=== PATIENT | male | born 1940 | race Caucasian/White ===

== ENCOUNTER 2016-12-21 21:10 | Inpatient (IN) | payer MEDICARE ==
[~2016-12-21] VITALS: Ht 175.3 cm; Wt 70.4 kg
[~2016-12-21 21:10] MED LIST: IOHEXOL 350 MG/ML 10 ML VIAL (for RAD DIAG) IV ONE
[2016-12-21 21:19] VITALS: BP 189/102; PULSE 96; RESP 18; TEMP 98; O2SAT 95
[2016-12-21 21:32] VITALS: BP 171/97; PULSE 84; RESP 18; O2SAT 97
--- NOTE | 2016-12-21 21:39 | PD ---
HPI Chief Complaint: CVA Time Seen by Provider: 21:22 Travel History International Travel<30 days: No Contact w/Intl Traveler<30days: No History of Present Illness HPI The patient 76 years old. He arrives to the triage department via private auto due to dysarthria. It started 3 hours prior to ER arrival. It has been progressively worsening since then. He also notes that he believes he left face droop as well. He reports that in 1992 he suffers from Parkinson's and has had left upper and lower extremity weakness. He has suffered no cranial nerve deficit however. The patient reports he has diabetes and takes glyburide for that. He has no additional complaint offered. Upon arrival to the ER stroke alert was activated. The patient takes a baby aspirin daily. He denies anticoagulants otherwise. Blood sugar on arrival 218. PFSH Past Medical History Cerebrovascular Accident: Yes Diabetes: Yes Hypertension: Yes Social History Tobacco Use: No (quit in 1992) Allergies-Medications (Allergen,Severity, Reaction): Coded Allergies: No Known Allergies (Unverified , 12/21/16) Reported Meds & Prescriptions Reported Meds & Active Scripts Active Reported Aspirin 81 (Aspirin) 81 Mg Tabdr 81 Mg PO DAILY Verapamil (Verapamil HCl) 40 Mg Tab Unknown Dose PO DAILY Glimepiride 2 Mg Tab 2 Mg PO HS Take with breakfast or first main meal Tamsulosin (Tamsulosin HCl) 0.4 Mg Cap 0.4 Mg PO HS Simvastatin 20 Mg Tab 20 Mg PO DAILY Review of Systems ROS Limitations: Clinical Condition Physical Exam Narrative GENERAL: 76-year-old male pleasant well-nourished well-developed SKIN: Warm and dry. HEAD: Atraumatic. Normocephalic. EYES: Pupils equal and round. No scleral icterus. No injection or drainage. ENT: No nasal bleeding or discharge. Mucous membranes pink and moist. NECK: Trachea midline. No JVD. CARDIOVASCULAR: Regular rate and rhythm. No murmur appreciated. RESPIRATORY: No accessory muscle use. Clear to auscultation. Breath sounds equal bilaterally. GASTROINTESTINAL: Abdomen soft, non-tender, nondistended. Hepatic and splenic margins not palpable. MUSCULOSKELETAL: No obvious deformities. No clubbing. No cyanosis. No edema. NEUROLOGICAL: There is a mild facial droop on the left side. The patient suffers with mild dysarthria cranial nerves otherwise appears preserved. On the left side there is a contraction deformity at the digits. There is trace pronator drift on the left side as well. The left upper and lower extremity motor weakness is chronic. PSYCHIATRIC: Appropriate mood and affect; insight and judgment normal. Data Data Last Documented VS Vital Signs Date Time Temp Pulse Resp B/P Pulse Ox O2 Delivery O2 Flow Rate FiO2 12/21/16 22:30 86 18 99 Nasal Cannula 2 12/21/16 22:01 159/83 12/21/16 21:19 98.0 Orders Diet Npo (12/22/16 Breakfast) Activity Bed Rest (12/21/16 ) Electrocardiogram (12/21/16 ) I-Stat Creatinine (12/21/16 21:) I-Stat Profile (12/21/16 21:22) Prothrombin Time / Inr (Pt) (12/21/16:) Act Partial Throm Time (Ptt) (12/21/16 21:22) Complete Blood Count With Diff (12/21/16 21:) Fibrinogen (12/21/16 21:22) Creatine Kinase (Cpk) (12/21/16 21:22) Troponin I (12/21/16 21:22) Ua Includes Microscopic (12/21/16 21:22) Drug Screen, Random Urine (12/21/16 21:22) Type And Screen (12/21/16 21:) Ct Brain W/O Iv Contrast(Rout) (12/21/16 ) Cta Brain W Iv Contrast W 3d (12/21/16 21:22) Cta Neck W Iv Contrast W 3d (12/21/16 21:22) Consult Neurology (12/21/16 ) Blood Glucose (12/21/16 21:22) Ecg Monitoring (12/21/16 21:) Neuro Checks Q2HX12,Q4H (12/21/16 21:22) Nursing Bedside Swallow Assess .ONCE (12/21/16 21:) Iv Access Insert/Monitor (12/21/16 21:22) NPO (12/21/16 21:22) Oximetry (12/21/16 21:22) Oxygen Administration (12/21/16 21:22) Resp Oxygen Segundo C Titrat 1-4 L (12/21/16 21:22) Cath For Specimen (12/21/16 21:22) Clopidogrel (Plavix) (12/21/16 22:15) Admit Order (Ed Use Only) (12/21/16 22:43) Labs Laboratory Tests Test 12/21/16 12/21/16 21:25 22:20 White Blood Count 6.3 TH/MM3 Red Blood Count 4.91 MIL/MM3 Hemoglobin 14.5 GM/DL Bedside Hemoglobin 14.6 G/DL Hematocrit 43.1 % Bedside Hematocrit 43.0 % Mean Corpuscular Volume 87.7 FL Mean Corpuscular Hemoglobin 29.6 PG Mean Corpuscular Hemoglobin 33.7 % Concent Red Cell Distribution Width 13.1 % Platelet Count 211 TH/MM3 Mean Platelet Volume 7.6 FL Neutrophils (%) (Auto) 58.4 % Lymphocytes (%) (Auto) 29.3 % Monocytes (%) (Auto) 8.5 % Eosinophils (%) (Auto) 3.1 % Basophils (%) (Auto) 0.7 % Neutrophils # (Auto) 3.7 TH/MM3 Lymphocytes # (Auto) 1.9 TH/MM3 Monocytes # (Auto) 0.5 TH/MM3 Eosinophils # (Auto) 0.2 TH/MM3 Basophils # (Auto) 0.0 TH/MM3 CBC Comment DIFF FINAL Differential Comment Prothrombin Time 10.5 SEC Prothromb Time International 1.0 RATIO Ratio Activated Partial 25.7 SEC Thromboplast Time Fibrinogen 314 mg/dL Bedside Sodium 140 MMOL/L Bedside Potassium 3.9 MMOL/L Bedside Chloride 103 MMOL/L Bedside Blood Urea Nitrogen 26 MG/DL Bedside Creatinine 1.2 MG/DL Bedside Glucose 211 MG/DL Total Creatine Kinase 165 U/L Troponin I LESS THAN 0.02 NG/ML Blood Type O POSITIVE Antibody Screen NEGATIVE Blood Bank Comment Urine Color LIGHT-YELLOW Urine Turbidity CLEAR Urine pH 6.0 Urine Specific [place] 1.044 Urine Protein NEG mg/dL Urine Glucose (UA) NEG mg/dL Urine Ketones NEG mg/dL Urine Occult Blood NEG Urine Nitrite NEG Urine Bilirubin NEG Urine Urobilinogen LESS THAN 2.0 MG/DL Urine Leukocyte Esterase NEG Urine RBC LESS THAN 1 /hpf Urine Mucus FEW /lpf Microscopic Urinalysis Comment Urine Opiates Screen NEG Urine Barbiturates Screen NEG Urine Amphetamines Screen NEG Urine Benzodiazepines Screen NEG Urine Cocaine Screen NEG Urine Cannabinoids Screen NEG MDM Medical Screen Exam Complete: Yes Emergency Medical Condition: Yes Differential Diagnosis Ischemic stroke, hemorrhagic stroke, hypoglycemia, metabolic abnormality, intracranial mass Narrative Course CBC & BMP Diagram 12/21/16 21:25 Tn < 0.02 EKG: sinus, MO interval 227, normal axis rate 86 Last 24 hours Impressions Neck CTA 12/21/162121 Signed Impressions: Service Date/Time: Wednesday, December 21, 2016 21:28 - CONCLUSION: Unremarkable examination. Lavon Atkinson MD Head CTA 12/21/162121 Signed Impressions: Service Date/Time: Wednesday, December 21, 2016 21:29 - CONCLUSION: Unremarkable study. Lavon Atkinson MD Head CT 12/21/16 0000 Signed Impressions: Service Date/Time: Wednesday, December 21, 2016 21:26 - CONCLUSION: Chronic and small vessel ischemic changes without any evidence for acute hemorrhage or mass effect. Lavon Atkinson MD Case discussed with neurologist Dr. hickman and the patient has a contraindication to TPA administration. The patient understands as does the . Patient will be admitted for advanced imaging and further evaluation. Case discussed Dr Escalante. Stroke Alert NIHSS NIH Stroke Scale Result: 5 NIHSS Time Completed: 21:33 Thrombolytic Contraindications Contraindications Comment: The patient arrived after the 3 hour window. He has a history of prior stroke and diabetes which are contraindications to alteplase. There was no focal lesion on the arterial cross sectional imaging. The patient, his and I had a fairly lengthy discussion. Both understand the contraindications to alteplase administration, which in this case is time of onset greater than 3 hours less than 4.5 hours with a history of stroke and diabetes. There is no new motor weakness in either extremity. Patient has a face droop on the left side only visible while smiling. Speach is very occasionally dysarthric beyond comprehension. Diagnosis Diagnosis: Primary Impression: CVA (cerebral vascular accident) Qualified Code: I63.9 - Cerebrovascular accident (CVA), unspecified mechanism Admitting Physician Requests: Admit Barney Mirza MD Dec 21, 2016 21:39
--- NOTE | 2016-12-21 21:46 | RADRPT ---
EXAM DATE/TIME: 12/21/2016 21:26 [facility] COMPARISON: No previous studies available for comparison. INDICATIONS : Stroke alert; left sided facial droop and slurred speech. RADIATION DOSE: 56.35 CTDIvol (mGy) This report was called by myself to Dr. Mirza at 21: 40 hours MEDICAL HISTORY : Cerebrovascular disease. SURGICAL HISTORY : None. ENCOUNTER: Initial ACUITY: 1 day PAIN SCALE: 1/10 LOCATION: cranial TECHNIQUE: Multiple contiguous axial images were obtained of the head. Using automated exposure control and adj ustment of the mA and/or kV according to patient size, radiation dose was kept as low as reasonably a chievable to obtain optimal diagnostic quality images. FINDINGS: There is no evidence for intracranial hemorrhage, mass effect, mass lesions, or edema. The visualize d bony structures appear intact. Moderate degree of brain atrophy is seen. Moderate periventricular white matter changes are seen nonspecific mostly consistent with chronic small vessel ischemic change s. There are no signs of acute infarction for technique. There are old lacunar infarctions on the ri ght as well. CONCLUSION: Chronic and small vessel ischemic changes without any evidence for acute hemorrhage o r mass effect. Lavon Atkinson MD on December 21, 2016 at 21:40 Board Certified Radiologist. This report was verified electronically.
[2016-12-21 21:47] LABS: I-STAT POTASSIUM 3.9 MMOL/L (3.5-4.9); I-STAT SODIUM 140 MMOL/L (138-146)
[2016-12-21 21:52] VITALS: RESP 20
[2016-12-21 21:52] LABS: AUTOMATED NEUTROPHIL # 3.7 TH/MM3 (1.8-7.7); BASOPHIL % 0.7 % (0.0-2.0); EOSINOPHIL # 0.2 TH/MM3 (0-0.4); EOSINOPHIL % 3.1 % (0.0-4.0); HEMATOCRIT 43.1 % (39.0-51.0); HEMO FLAGS DIFF FINAL; LYMPH % 29.3 % (9.0-44.0); LYMPHOCYTE # 1.9 TH/MM3 (1.0-4.8); MEAN CELL VOLUME 87.7 FL (80.0-100.0); MEAN CORPUSCULAR HEMOGLOBIN 29.6 PG (27.0-34.0); MEAN CORPUSCULAR HGB CONC 33.7 % (32.0-36.0); MONO % 8.5 % (0.0-8.0); NEUT % 58.4 % (16.0-70.0); PLATELET COUNT 211 TH/MM3 (150-450); RED BLOOD COUNT 4.91 MIL/MM3 (4.50-5.90); RED CELL DISTRIBUTION WIDTH 13.1 % (11.6-17.2); WHITE BLOOD COUNT 6.3 TH/MM3 (4.0-11.0)
--- NOTE | 2016-12-21 21:56 | RADRPT ---
EXAM DATE/TIME: 12/21/2016 21:28 [facility] COMPARISON: CTA BRAIN W 3D RECON, December 21, 2016, 21:29. CT BRAIN W/O CONTRAST, December 21, 2016, 21:26. INDICATIONS : Stroke alert; left sided facial droop and slurred speech. IV CONTRAST: 75 cc Omnipaque 350 (iohexol) IV ; Cumulative dose for multiple exams. RADIATION DOSE: 34.37 CTDIvol (mGy) ; Combined studies MEDICAL HISTORY : Cerebrovascular disease. SURGICAL HISTORY : None. ENCOUNTER: Initial ACUITY: 1 day PAIN SCALE: 0/10 LOCATION: neck Elevated flow velocities and ICA/CCA ratios have been found to correlate with increased degrees of vessel stenosis, calculated as percentage of diameter relative to a normal segment of distal ICA/CCA. TECHNIQUE: Volumetric scanning was performed using a multirow detector CT scanner. The data was post processed with a variety of visualization algorithms including full-volume maximum intensity projection, multip lanar sliding thin-slab reformation, curved-planar reformation, and surface-rendering techniques. Us ing automated exposure control and adjustment of the mA and/or kV according to patient size, radiatio n dose was kept as low as reasonably achievable to obtain optimal diagnostic quality images. FINDINGS: AORTIC ARCH: There is a three-vessel origin of the great vessels from the aorta. No evidence of ostial narrowing. RIGHT CAROTID: The common carotid artery is intact. The carotid bulb has a normal configuration without ulceration o r narrowing. The internal carotid artery lumen is smooth without stenosis. The external carotid yolanda ry is intact. LEFT CAROTID: The common carotid artery is intact. The carotid bulb has a normal configuration without ulceration or narrowing. The internal carotid artery lumen is smooth without stenosis. The external carotid ar jolie is intact. VERTEBRALS: The vertebral arteries have a symmetric diameter. No stenotic lesions are seen. CONCLUSION: Unremarkable examination. Lavon Atkinson MD on December 21, 2016 at 21:52 Board Certified Radiologist. This report was verified electronically.
[2016-12-21 22:01] VITALS: BP 159/83; PULSE 79; RESP 18; O2SAT 100
[2016-12-21 22:01] LABS: APTT (PATIENT) 25.7 SEC (24.3-30.1); PROTHROMBIN TIME - PATIENT 10.5 SEC (9.8-11.6)
[2016-12-21 22:08] LABS: CREATINE KINASE 165 U/L (39-308)
--- NOTE | 2016-12-21 22:11 | RADRPT ---
EXAM DATE/TIME: 12/21/2016 21:29 [facility] COMPARISON: CTA CAROTID ARTERIES W 3D RECON, December 21, 2016, 21:28. CT BRAIN W/O CONTRAST, December 21, 2016, 21:26 . INDICATIONS : Stroke alert; left sided facial droop and slurred speech. IV CONTRAST: 75 cc Omnipaque 350 (iohexol) IV ; Cumulative dose for multiple exams. RADIATION DOSE: 34.37 CTDIvol (mGy) MEDICAL HISTORY : Cerebrovascular disease. SURGICAL HISTORY : None. ENCOUNTER: Initial ACUITY: 1 day PAIN SCALE: 1/10 LOCATION: cranial TECHNIQUE: Volumetric scanning was performed using a multi-row detector CT scanner. The data was post processed with a variety of visualization algorithms including full volume maximum intensity projection, multi -planar sliding thin slab reformation, curved planar reformation, and surface rendering techniques. Using automated exposure control and adjustment of the mA and/or kV according to patient size, radiat ion dose was kept as low as reasonably achievable to obtain optimal diagnostic quality images. FINDINGS: No significant vascular malformations, vessel truncation or aneurysmal dilatations are seen. No defin ite thrombus is identified. CONCLUSION: Unremarkable study. Lavon Atkinson MD on December 21, 2016 at 22:07 Board Certified Radiologist. This report was verified electronically.
[2016-12-21] MEDS ORDERED: CLOPIDOGREL 75 MG TAB PO ONE (22:15)
[2016-12-21 22:46] LABS: BLOOD, URINE NEG (NEG); GLUCOSE,URINE NEG (NEG); KETONE, URINE NEG (NEG); MUCUS URINE FEW /lpf (OCC); NITRITE,URINE NEG (NEG); URINE COLOR LIGHT-YELLOW (YELLW/STRAW)
[2016-12-21 22:50] LABS: AMPHETAMINE, URINE NEG (NEG); BARBITURATES, URINE NEG (NEG); COCAINE, URINE NEG (NEG)
[2016-12-21] MEDS ORDERED: SIMV20TA PO (23:21)
[2016-12-21] MEDS ORDERED: ASPI-110 PO (23:21)
[2016-12-21] MEDS ORDERED: TAMS0.4C4 PO (23:21)
[2016-12-21] MEDS ORDERED: GLIM2TAB PO (23:21)
[2016-12-21] MEDS ORDERED: VERA40TA PO (23:21)
[2016-12-21 23:48] VITALS: BP 149/86; PULSE 73; RESP 18; O2SAT 98
[2016-12-22] VITALS (9 sets, daily range): BP systolic 138–174; BP diastolic 74–92; PULSE 63–78; RESP 16–20; TEMP 97.4–97.8; O2SAT 97–99
[2016-12-22] MEDS ORDERED: SODIUM CHLOR 0.9% 1000 ML INJ 1,000 ML IV SCH (00:25)
--- NOTE | 2016-12-22 09:11 | HHI.HP ---
[facility] Unknown Admission Diagnosis CVA Diagnoses: Chief Complaint: Slurred Speech, Dysarthria Travel History International Travel<30 Days: No Contact w/Intl Traveler <30 Da: No Traveled to Known Affected Are: No History of Present Illness This is a pleasant 76 y/o male who came to ER on a private Auto due to Dysarthria that started 3 hours before coming to ER, progressively worsening, He also notes that he believes he left face droop as well. He reports that in 1992 he suffers from Parkinson's and has had left upper and lower extremity weakness. He has suffered no cranial nerve deficit however. The patient reports he has diabetes and takes glyburide for that. He has no additional complaint offered. Upon arrival to the ER stroke alert was activated. The patient takes a baby aspirin daily. He denies anticoagulants otherwise. Blood sugar on arrival 218. patient seen in his bedroom, no relatives with him he states at 5 pm yesterday started with Slurred speech, came to ER until now not found pathology. Past Family Social History Past Medical History CVA Hypertension DM II Hyperlipidemia Past Surgical History Hernia repair 1992 Tonsillectomy Skin cancer lesions removal Reported Medications Reported Meds & Active Scripts Active Reported Aspirin 81 (Aspirin) 81 Mg Tabdr 81 Mg PO DAILY Verapamil (Verapamil HCl) 40 Mg Tab Unknown Dose PO DAILY Glimepiride 2 Mg Tab 2 Mg PO HS Take with breakfast or first main meal Tamsulosin (Tamsulosin HCl) 0.4 Mg Cap 0.4 Mg PO HS Simvastatin 20 Mg Tab 20 Mg PO DAILY Allergies: Coded Allergies: No Known Allergies (Unverified , 12/21/16) Active Ordered Medications Current Medications Medications (Trade) Dose Ordered Sig/Serenity Route Start Time Stop Time Status Last Admin (NS 1000 ml Inj) 1,000 ml @ 70 mls/hr [id number] IV 12/22/16 00:25 12/22/16 00:41 Family History Father with DM Mother with history of Stroke. Social History Quit smoking in 1992 Physical Exam Vital Signs Vital Signs Date Time Temp Pulse Resp B/P Pulse Ox O2 Delivery O2 Flow Rate FiO2 12/22/16 08:05 97.4 65 18 158/84 99 12/22/16 04:00 97.7 63 16 138/74 98 12/22/16 02:20 97.7 78 18 173/83 98 12/21/16 23:48 73 18 149/86 98 Nasal Cannula 2 12/21/16 22:30 86 18 99 Nasal Cannula 2 12/21/16 22:01 79 18 159/83 100 Nasal Cannula 2 12/21/16 21:52 20 12/21/16 21:43 96 Nasal Cannula 2 12/21/16 21:32 84 18 171/97 97 Room Air 12/21/16 21:19 98.0 96 18 189/102 95 Physical Exam GENERAL: No acute distress. SKIN: Warm and dry. HEAD: Atraumatic. Normocephalic. EYES: Pupils equal and round. No scleral icterus. No injection or drainage. ENT: No nasal bleeding or discharge. Mucous membranes pink and moist. NECK: Trachea midline. No JVD. CARDIOVASCULAR: Regular rate and rhythm. No murmur appreciated. RESPIRATORY: No accessory muscle use. Clear to auscultation. Breath sounds equal bilaterally. GASTROINTESTINAL: Abdomen soft, non-tender, nondistended. Hepatic and splenic margins not palpable. MUSCULOSKELETAL: No obvious deformities. No clubbing. No cyanosis. No edema. NEUROLOGICAL: Alert and oriented x 3, No Focal deficits. PSYCHIATRIC: Appropriate mood and affect; insight and judgment normal. Laboratory Laboratory Tests Test 12/21/16 12/21/16 21:25 22:20 White Blood Count 6.3 Red Blood Count 4.91 Hemoglobin 14.5 Bedside Hemoglobin 14.6 Hematocrit 43.1 Bedside Hematocrit 43.0 Mean Corpuscular Volume 87.7 Mean Corpuscular Hemoglobin 29.6 Mean Corpuscular Hemoglobin 33.7 Concent Red Cell Distribution Width 13.1 Platelet Count 211 Mean Platelet Volume 7.6 Neutrophils (%) (Auto) 58.4 Lymphocytes (%) (Auto) 29.3 Monocytes (%) (Auto) 8.5 Eosinophils (%) (Auto) 3.1 Basophils (%) (Auto) 0.7 Neutrophils # (Auto) 3.7 Lymphocytes # (Auto) 1.9 Monocytes # (Auto) 0.5 Eosinophils # (Auto) 0.2 Basophils # (Auto) 0.0 CBC Comment DIFF FINAL Differential Comment Prothrombin Time 10.5 Prothromb Time International 1.0 Ratio Activated Partial 25.7 Thromboplast Time Fibrinogen 314 Bedside Sodium 140 Bedside Potassium 3.9 Bedside Chloride 103 Bedside Blood Urea Nitrogen 26 Bedside Creatinine 1.2 Bedside Glucose 211 Total Creatine Kinase 165 Troponin I LESS THAN 0.02 Blood Type O POSITIVE Antibody Screen NEGATIVE Blood Bank Comment Urine Color LIGHT-YELLOW Urine Turbidity CLEAR Urine pH 6.0 Urine Specific [place] 1.044 Urine Protein NEG Urine Glucose (UA) NEG Urine Ketones NEG Urine Occult Blood NEG Urine Nitrite NEG Urine Bilirubin NEG Urine Urobilinogen LESS THAN 2.0 Urine Leukocyte Esterase NEG Urine RBC LESS THAN 1 Urine Mucus FEW Microscopic Urinalysis Comment Urine Opiates Screen NEG Urine Barbiturates Screen NEG Urine Amphetamines Screen NEG Urine Benzodiazepines Screen NEG Urine Cocaine Screen NEG Urine Cannabinoids Screen NEG Result Diagram: 12/21/162124 Imaging Last Impressions Neck CTA 12/21/162121 Signed Impressions: Service Date/Time: Wednesday, December 21, 2016 21:28 - CONCLUSION: Unremarkable examination. Lavon Atkinson MD Head CTA 12/21/162121 Signed Impressions: Service Date/Time: Wednesday, December 21, 2016 21:29 - CONCLUSION: Unremarkable study. Lavon Atkinson MD Head CT 12/21/16 0000 Signed Impressions: Service Date/Time: Wednesday, December 21, 2016 21:26 - CONCLUSION: Chronic and small vessel ischemic changes without any evidence for acute hemorrhage or mass effect. Lavon Atkinson MD Assessment and Plan Assessment and Plan 1. TIA, Slurred speech and Dysarthria that Improved, ruled out CVA, not able to give tPA by Neurology specialist due to out of Window and DM II. Neuro checks, Aspirin 325 mg daily. Pravastatin 80 mg daily, Neurology specialist following, Cardiac monitoring, Echocardiogram PT/OT and Speech therapy. negative CTA brain, CT brain and neck CTA. 2. CVA by history with secondary left Hemiparesis improved 3. Hypertension controlled continue permissive Hypertension 4. DM II sliding scale mild and follow blood sugar level and Hemoglobin A1C. 5. Hyperlipidemia on Statins DVT prophylaxis with Lovenox. Discussed with Nurse Miss James and Speech therapy specialist in the room appreciated. Physician Certification 2 Midnight Certification Type: Admission for Inpatient Services Order for Inpatient Services The services are ordered in accordance with Medicare regulations or non- Medicare payer requirements, as applicable. In the case of services not specified as inpatient-only, they are appropriately provided as inpatient services in accordance with the 2-midnight benchmark. Estimated LOS (days): 1 days is the estimated time the patient will need to remain in the hospital, assuming treatment plan goals are met and no additional complications. Post-Hospital Plan: Home Tal Kong MD Dec 22, 2016 09:10
--- NOTE | 2016-12-22 09:45 | EKG ---
Date Performed: 12/21/2016 Time Performed: 21:22:50 PTAGE: 76 years EKG: Sinus rhythm WITH FIRST DEGREE AV BLOCK ABNORMAL ECG NO PREVIOUS TRACING DOCTOR: David Linn Interpretating Date/Time 12/22/2016 09:44:35
[2016-12-22] MEDS ORDERED: NALOXONE HCL 0.4 MG/ML AMP IV PRN (11:30)
[2016-12-22] MEDS: ASPIRIN 325 MG TAB PO SCH (12:02)
[2016-12-22] MEDS: ENOXAPARIN SODIUM 40 MG/0.4 ML SYRINGE SQ SCH (12:02)
[2016-12-22] MEDS: PRAVASTATIN SOD 80 MG TAB PO SCH (12:02)
[2016-12-22] MEDS ORDERED: SODIUM CHLORIDE 0.9% FLUSH 10 ML FLUSH IV FLUSH PRN (12:30)
[2016-12-22] MEDS ORDERED: DEXTROSE 50% IN WATER 50 ML VIAL(D50) IV PUSH PRN (12:30)
[2016-12-22] MEDS ORDERED: GLUCAGON 1 MG/ML VIAL IM/SQ PRN (12:30)
--- NOTE | 2016-12-22 12:42 | MB ---
cc: CAROLYN SYKES M.D. DATE OF CONSULTATION: 12/22/2016 REASON FOR CONSULTATION TIA. HISTORY OF PRESENT ILLNESS Mr. Escobar is a very nice 76-year-old man who has a history of previous stroke in 1992 with residual left-sided weakness. He was in his usual state of health until yesterday around 5:00 p.m. he suddenly developed difficulty getting words out. His speech was mainly slurred at the time. His noticed this as well. He had some hesitancy as well in his speech. He had no focal weakness or numbness other than the residual left-sided weakness that he had from his prior stroke. He came to the ER around 9:00 p.m.. His symptoms at that time were rapidly improving. He was felt not to be a TPA candidate because of the time factor as well as the rapid improvement in his symptomatology. At the present time he feels he is back to normal. He felt the left side of his face had drooped as well, but this has improved. PAST MEDICAL HISTORY 1. History of previous stroke in 1992 with residual left-sided weakness. 2. Diabetes, non-insulin dependent. 3. Parkinsonism. 4. Hypertension. 5. Hyperlipidemia. 6. Hernia repair. 7. Skin cancer removal. MEDICATIONS Medications at home: 1. Aspirin 81 mg daily. 2. Verapamil 40 mg daily. 3. Glimepiride 2 mg h.s. 4. Tamsulosin 0.4 mg h.s. 5. Simvastatin 20 mg daily. ALLERGIES None known. SOCIAL HISTORY Denies tobacco use or alcohol abuse. NEUROLOGIC EXAMINATION Blood pressure is 158/84, pulse 65 regular, respirations 18, temperature 97.4 degrees. Higher cortical functions are normal. Speech is slightly dysarthric but he states this is normal for him. He states it is much better than yesterday. Cranial nerves intact. On motor exam he has trace weakness in the left arm and left leg rated at 4+/5 proximally and distally with a mild pronator drift left upper extremity. Diminished fine motor skills in the left hand which he states is residual. Sensory exam intact. Reflexes 2+ symmetric with no Babinski sign present. IMAGING CT of the brain: No acute change present. There are chronic ischemic changes seen. CTA of the neck is negative for any stenosis. CTA brain negative. There is no evidence of any large vessel occlusion. LABORATORY White count 6300, hemoglobin 14.5, hematocrit 43%, platelet count 211,000. Sodium 140, potassium 3.9, chloride 103, BUN 26, creatinine 1.2, glucose 211. CPK 165. PT 10.5, INR 1, APTT 25.7. Tox screen is negative. Urinalysis pH is 6, specific gravity 1.044. EKG First-degree AV block, normal sinus rhythm. IMPRESSION Transient ischemic attack, now resolved. The patient was not a candidate for IV TPA given the resolution of symptoms. He was not a candidate for interventional therapy because the CTA was negative for any large vessel occlusion. He has some mild weakness on the left side which is residual from his old stroke. There are no new deficits. RECOMMENDATIONS Proceed with an MRI of the brain as well as an echocardiogram. Continue to monitor cardiac telemetry, rule out atrial fibrillation. Also check a lipid panel. Would recommend Plavix 75 mg daily. 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 MD KATHIA Loco/LUIS EDUARDO /12:26 PM /12:33 PM
[2016-12-22] MEDS: SODIUM CHLOR 0.9% 1000 ML INJ 1,000 ML IV SCH (13:12)
[2016-12-22] MEDS: CLOPIDOGREL 75 MG TAB PO SCH (13:12)
[2016-12-22] MEDS ORDERED: INSULIN NovoLIN REGULAR SUPPLEMENTAL SCALE SQ SCH (16:00)
--- NOTE | 2016-12-22 16:27 | RADRPT ---
EXAM DATE/TIME: 12/22/2016 15:15 [place] COMPARISON: No previous studies available for comparison. INDICATIONS : Stroke. Slurred speech. MEDICAL HISTORY : Diabetes mellitus type 2. Hypertension. Stroke SURGICAL HISTORY : Inguinal hernia repair. ENCOUNTER: Initial ACUITY: 2 day PAIN SCORE: 0/10 LOCATION: Head TECHNIQUE: Multiplanar, multisequence MRI of the brain was performed without contrast. FINDINGS: CEREBRUM: Cortical and central atrophy. No evidence of midline shift, mass lesion, hemorrhage or acute infarct ion. 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 No extraaxial fluid collections are seen. The pituitary gland and suprasellar cistern are normal in configuration. WHITE MATTER: Periventricular areas of increased T2 and flair signal intensity characteristic of mild small vessel ischemic demyelination. POSTERIOR FOSSA: The cerebellum and brainstem are intact. The 4th ventricle is midline. The cerebellopontine angle is unremarkable. The cerebellar tonsils are normal in position. DIFFUSION IMAGING: Punctate area of true diffusion restriction in the left deep white matter tract characteristic of a s mall lacunar type infarct. EXTRACRANIAL: The visualized portions of the orbits are unremarkable. Chronic sinusitis in the inferior aspect of b oth maxillary antra. CONCLUSION: 1. Punctate area of diffusion restriction in the left olivia radiata characteristic of a punctate acu te or subacute lacunar type infarct. 2. Cortical and central atrophy with old lacunar type infarcts in the right basal ganglia. 3. Mild periventricular small vessel ischemic demyelination. Raj Anne MD on December 22, 2016 at 16:14 Board Certified Radiologist. This report was verified electronically.
[2016-12-22 16:55] LABS: HEMOGLOBIN A1a 1.4 %; HEMOGLOBIN A1b 1.6 %; HEMOGLOBIN Ao 83.3 %; HEMOGLOBIN LA1C 2.8 %; HEMOGLOBIN P3 4.3 %
[2016-12-22] MEDS: INSULIN ASPART SUPPLEMENTAL SCALE SQ SCH ×2 (17:51→22:28)
--- NOTE | 2016-12-22 19:01 | EC ---
Study Study Date:12/22/2016 STUDY CONCLUSIONS SUMMARY - Left ventricle: The cavity size was normal. Wall thickness was normal. Systolic function was normal. The estimated ejection fraction was 60%. Wall motion was normal; there were no regional wall motion abnormalities. - Tricuspid valve: Mild regurgitation. If LV function is below 40, please consider prescribing an ACEI or ARB or document rationale for non-use. PROCEDURE DATA STUDY STATUS: Elective. Procedure: Transthoracic echocardiography. Image quality was good. Scanning was performed from the parasternal, apical, and subcostal acoustic windows. Study completion: The patient tolerated the procedure well. Transthoracic echocardiography. M-mode, complete 2D, complete spectral Doppler, and color Doppler. Patient status: Inpatient. CARDIAC ANATOMY LEFT VENTRICLE: The cavity size was normal. Wall thickness was normal. Systolic function was normal. The estimated ejection fraction was 60%. Wall motion was normal; there were no regional wall motion abnormalities. AORTIC VALVE: Trileaflet; mildly thickened, mildly calcified leaflets. Doppler: Transvalvular velocity was within the normal range. There was no stenosis. No regurgitation. AORTA: Aortic root: The aortic root was normal in size. MITRAL VALVE: Structurally normal valve. Doppler: Transvalvular velocity was within the normal range. There was no evidence for stenosis. No regurgitation. LEFT ATRIUM: The atrium was normal in size. RIGHT VENTRICLE: The cavity size was normal. Wall thickness was normal. PULMONIC VALVE: Doppler: Transvalvular velocity was within the normal range. There was no evidence for stenosis. No regurgitation. TRICUSPID VALVE: Structurally normal valve. Doppler: Transvalvular velocity was within the normal range. Mild regurgitation. PULMONARY ARTERY: The main pulmonary artery was normal-sized. Systolic pressure was within the normal range. RIGHT ATRIUM: The atrium was normal in size. PERICARDIUM: There was no pericardial effusion. SYSTEMIC VEINS: Inferior vena cava: The vessel was normal in size. BASIC MEASUREMENTS ADULT NORMAL Left ventricle LV internal dimension, ED, chordal level, 47.8 mm 43-52 PLAX LV internal dimension, ES, chordal level, 36.2 mm 23-38 PLAX Fractional shortening, chordal level, PLAX *24 % >29 LV posterior wall thickness, ED 7.43 mm IVS/LVPW ratio, ED 1.08 <1.3 Ventricular septum Septal thickness, ED 8.02 mm Aortic valve Leaflet separation 23 mm 15-26 Left atrium Anterior-posterior dimension 30 mm Right ventricle RV internal dimension, ED, PLAX 21.3 mm 19-38 BASIC MEASUREMENTS ADULT NORMAL Aortic valve Leaflet separation 23 mm 15-26 Aorta Root diameter, ED 35 mm 20-37 DOPPLER MEASUREMENTS ADULT NORMAL Main pulmonary artery Pressure, S 29 mm Hg =30 Mitral valve Peak E-wave velocity 60.2 cm/s Peak A-wave velocity 85.4 cm/s Peak E/A ratio 0.7 Tricuspid valve Regurgitant peak velocity 188 cm/s Peak RV-RA gradient, S 14 mm Hg Systemic veins Estimated CVP 15 mm Hg Right ventricle RV pressure, S 29 mm Hg <30 LEGEND: Mean values are shown as u=mean value. Asterisk (*) fonseca values outside specified normal range. Prepared and signed by Jame Cramer [id number]
[2016-12-22] MEDS: SODIUM CHLORIDE 0.9% FLUSH 10 ML FLUSH IV FLUSH SCH (20:54)
[2016-12-22] MEDS ORDERED: TAMSULOSIN HCL 0.4 MG CAP PO SCH (21:00)
[2016-12-23 00:29] VITALS: BP 134/75; PULSE 65; RESP 18; TEMP 97.6; O2SAT 98
[2016-12-23] MEDS: SODIUM CHLOR 0.9% 1000 ML INJ 1,000 ML IV SCH (02:23)
[2016-12-23 04:28] VITALS: PULSE 65
[2016-12-23 04:41] VITALS: BP 128/77; PULSE 60; RESP 16; TEMP 98.4; O2SAT 98
[2016-12-23] MEDS: INSULIN ASPART SUPPLEMENTAL SCALE SQ SCH ×2 (06:01→12:17)
[2016-12-23 08:00] VITALS: BP 145/81; PULSE 76; RESP 18; TEMP 97.8; O2SAT 94
[2016-12-23 08:11] VITALS: PULSE 65
[2016-12-23] MEDS: PRAVASTATIN SOD 80 MG TAB PO SCH (08:38)
[2016-12-23] MEDS: CLOPIDOGREL 75 MG TAB PO SCH (08:38)
[2016-12-23] MEDS: ASPIRIN 325 MG TAB PO SCH (08:38)
[2016-12-23] MEDS: SODIUM CHLORIDE 0.9% FLUSH 10 ML FLUSH IV FLUSH SCH (08:39)
[2016-12-23 12:00] VITALS: BP 145/84; PULSE 70; RESP 16; TEMP 97.3; O2SAT 96
[2016-12-23] MEDS: ENOXAPARIN SODIUM 40 MG/0.4 ML SYRINGE SQ SCH (12:17)
--- NOTE | 2016-12-23 13:06 | HHI.PR ---
Review/Management Diagnosis TIA/small punctate left hemisphere cva. Plan plavix 75 mg daily ok form neurology standpoint to discharge home and f/u with me in 2 weeks Recommend outpatient cardiology evaluation for possible fdc panel monitor (LINQ) to evaluate for possible intermittent afib. Diagnosis/Plan: Subjective Subjective Comments No acute events reported, feels back to baseline Active Medications Current Medications Medications (Trade) Dose Ordered Sig/Serenity Route Start Time Stop Time Status Last Admin (Flomax) 0.4 mg HS PO 12/22/16 21:00 12/22/16 20:48 (Aspirin) 325 mg DAILY PO 12/22/16 12:00 12/23/16 08:38 (Pravachol) 80 mg DAILY PO 12/22/16 12:00 12/23/16 08:38 (Narcan Inj) 0.4 mg UNSCH PRN IV 12/22/16 11:30 (Lovenox Inj) 40 mg Q24H SQ 12/22/16 12:00 12/23/16 12:17 (NS Flush) 2 ml BID IV FLUSH 12/22/16 21:00 Sodium Chloride 2 ml 2 ml UNSCH PRN IV FLUSH 12/22/16 12:30 (NS 1000 ml Inj) 1,000 ml @ 70 mls/hr [id number] IV 12/22/16 12:27 12/23/16 02:23 (Plavix) 75 mg DAILY PO 12/22/16 12:30 12/23/16 08:38 (D50w (Vial) Inj) 25 ml UNSCH PRN IV PUSH 12/22/16 12:30 (Glucagon Inj) 1 mg UNSCH PRN IM/SQ 12/22/16 12:30 Allergies Allergies Coded Allergies No Known Allergies (Unverified12/21/16) Exam I&O / VS 12/22/16 12/22/16 12/23/16 15:00 23:00 07:00 Intake Total 907 ml 560 ml 620 ml Output Total 500 ml Balance 907 ml 60 ml 620 ml Intake Oral 0 ml 560 ml 620 ml IV Total 907 ml Output Urine Total 500 ml # Voids 5 2 # Bowel Movements 0 1 0 Vital Signs Date Time Temp Pulse Resp B/P Pulse Ox O2 Delivery O2 Flow Rate FiO2 12/23/16 08:40 Room Air 12/23/16 08:00 97.8 76 18 145/81 94 12/23/16 04:41 98.4 60 16 128/77 98 12/23/16 04:28 65 12/23/16 00:29 97.6 65 18 134/75 98 12/22/16 22:30 Room Air 12/22/16 21:51 97 Nasal Cannula 12/22/16 20:15 97.5 67 18 174/87 98 12/22/16 16:05 97.8 65 20 144/92 98 Exam Comments alert, oriented, speech mild dysarthria CN intact MOTOR--4+./5 lue and lle 5/5 rue and rle Objective Radiology Results small area of abnormal restricted diffusion left olivia radiata c/w tiny acute cva. Micro and Labs Laboratory Tests Test 12/22/16 12/23/16 15:00 06:14 Hemoglobin A1c 6.3 Triglycerides Level 60 Cholesterol Level 129 LDL Cholesterol 61 HDL Cholesterol 56.0 Cholesterol/HDL Ratio 2.30 Diagnostic Tests ECHO---EF 60%, mild tricuspid regurgitation, no thrombus telemetry normal sinus rhythm Benito Anthony PhD MD Dec 23, 2016 13:06
[2016-12-23] MEDS ORDERED: ASPI-110 PO (14:28)
[2016-12-23] MEDS ORDERED: PRAV40TA2 PO (14:28)
[2016-12-23] MEDS ORDERED: PLAV75TA29 PO (14:28)
[2016-12-23] MEDS ORDERED: SIMV20TA PO (14:31)
--- NOTE | 2016-12-23 14:33 | HHI.DCPOC ---
Discharge Care Plan Diagnosis: (1) CVA (cerebral vascular accident) (2) HTN (hypertension) Goals to Promote Your Health * To prevent worsening of your condition and complications * To maintain your health at the optimal level Directions to Meet Your Goals Take your medications as prescribed Follow your dietary instruction Follow activity as directed Keep your appointments as scheduled Take your immunizations and boosters as scheduled If your symptoms worsen call your PCP, if no PCP go to Urgent Care Center or Emergency Room Smoking is Dangerous to Your Health. Avoid second hand smoke Call the 24-hour hour crisis hotline for domestic abuse at Donaldo Antonio MD Dec 23, 2016 14:33
--- NOTE | 2016-12-27 18:29 | PD.CONS ---
Assessment and Plan Plan Consult received per stroke order set. EMR reviewed. Neurology notes patient at baseline and PT/OT note patient independent. Consult deferred. Please reconsult as appropriate. Thank you. Haydee Brower MD Dec 27, 2016 18:29
== END 2016-12-23 15:58 | disposition home or self-care (01) | DRG 65 ==
LOC: NEPC 21:10 → NEDA 22:44 → N04A 12-22 02:20
PROVIDERS: ADMIT Hospitalist; ATTEND Hospitalist
DX: I63.9 Cerebral infarction, unspecified (principal); I69.354 Hemiplegia and hemiparesis following cerebral infarction affecting left non-dominant side; G20 Parkinson's disease; E11.9 Type 2 diabetes mellitus without complications; R47.1 Dysarthria and anarthria; I07.1 Rheumatic tricuspid insufficiency; E78.5 Hyperlipidemia, unspecified; I10 Essential (primary) hypertension; Z79.84 Long term (current) use of oral hypoglycemic drugs; Z79.82 Long term (current) use of aspirin; Z87.891 Personal history of nicotine dependence; Z85.828 Personal history of other malignant neoplasm of skin
CPT/HCPCS: 70450; 70496; 70498; 70551; 80061; 80307; 81001; 82435; 82550; 82565; 82947; 82948; 83036; 84132; 84295; 84484; 84520; 85025; 85384; 85610; 85730; 86850; 86900; 86901; 93005; 93306; J1650; J1815; J7030; Q9967